=== PATIENT | male | born 1970 | race Caucasian/White ===

== ENCOUNTER 2023-10-04 06:24 | Day surgery (SDC) | payer BC, OTHER ==
[~2023-10-04 06:24] MED LIST: Midazolam 1 MG/ML 2 ML SDV ONE; fentaNYL 100 MCG/2 ML SDV ONE
[2023-10-04] MEDS: Dextrose 5%-0.45% NaCl 1,000 ML IV SCH (06:54)
[2023-10-04] MEDS: fentaNYL 100 MCG/2 ML SDV IV ONE ×2 (07:28→07:29)
[2023-10-04] MEDS: Midazolam 1 MG/ML 2 ML SDV IV ONE ×6 (07:29→07:37)
== END 2023-10-04 09:10 | disposition home or self-care (01) ==
LOC: DL.ENDO 06:24
PROVIDERS: ATTEND Internal Medicine Gastroenterology
DX: Z12.11 Encounter for screening for malignant neoplasm of colon (principal); K21.9 Gastro-esophageal reflux disease without esophagitis; E83.42 Hypomagnesemia; E53.8 Deficiency of other specified B group vitamins; Z88.0 Allergy status to penicillin; Z79.82 Long term (current) use of aspirin
CPT/HCPCS: 45378; J2250; J3010; J7042

== ENCOUNTER 2024-06-18 12:28 | Emergency (ER) | payer OTHER ==
[2024-06-18] MEDS ORDERED: Sodium Chloride 0.9% 10 ML Syringe FLUSH PRN (12:44)
[2024-06-18 13:11] LABS: BASOPHILS PERCENT AUTO 0.1 % (0.0-1.0); EOSINOPHILS PERCENT AUTO 0.8 % (1.0-3.0); HEMATOCRIT 48.4 % (40.0-54.0); HEMOGLOBIN 16.2 g/dL (14.0-18.0); LYMPHOCYTES PERCENT AUTO 12.4 % (20.5-50.1); MEAN CORPUSCULAR HEMOGLOBIN 29.7 pg (27.0-34.0); MEAN CORPUSCULAR HGB CONC 33.5 g/dL (33.0-35.0); MEAN CORPUSCULAR VOLUME 88.6 fL (80-100); MONOCYTES PERCENT AUTO 6.7 % (2-8); PLATELET COUNT,PLT 181 10^3/uL (150-450); RED BLOOD CELL COUNT 5.46 10^6/uL (4.6-6.2); WHITE BLOOD CELL COUNT,WBC 7.8 10^3/uL (5.0-10.0)
[2024-06-18 13:33] LABS: PROTHROMBIN TIME 10.4 SEC (9.0-12.0); PTT,PARTIAL THROMBOPLSTIN TIME 24.2 SEC (22.0-34.0)
[2024-06-18 13:34] LABS: A/G RATIO 1.3; ALANINE AMINOTRANSFERASE,ALT 66 U/L (16-63); ALBUMIN 4.2 g/dL (3.4-5.0); ALKALINE PHOSPHATASE 88 U/L (46-116); ANION GAP 14.6 mEq/L (7-13); ASPARTATE AMNIOTRANSFERASE,AST 25 U/L (15-37); BILIRUBIN TOTAL 1.2 mg/dL (0.2-1.0); BLOOD UREA NITROGEN,BUN 13 mg/dL (7-18); BUN/CREATININE RATIO 12.4 (No establ ref range); C-REACTIVE PROTEIN < 0.50 ng/dL (<=0.50); CALCIUM 9.1 mg/dL (8.5-10.1); CARBON DIOXIDE,CO2 28 mmol/L (21-32); CHLORIDE,CL 102 mmol/L (98-107); CREATININE 1.05 mg/dL (0.70-1.30); ESTIMATED GFR 85 mL/min (>=60); GLUCOSE RANDOM 103 mg/dL (70-99); LACTIC ACID 1.4 mmol/L (0.4-2.0); MAGNESIUM 2.1 mg/dL (1.8-2.4); POTASSIUM,K 4.6 mmol/L (3.5-5.1); PROTEIN TOTAL,TP 7.5 g/dL (6.4-8.2); SODIUM,NA 140 mmol/L (136-145)
== END 2024-06-18 14:06 | disposition home or self-care (01) ==
LOC: DL.ED 12:28
DX: R07.89 Other chest pain (principal); R42 Dizziness and giddiness; Z79.899 Other long term (current) drug therapy; Z79.82 Long term (current) use of aspirin; Z88.0 Allergy status to penicillin
CPT/HCPCS: 36415; 71045; 80053; 83605; 83735; 84484; 85025; 85610; 85730; 86140; 87428-QW; 93005; 99285